=== PATIENT | male | born 1960 ===

== ENCOUNTER 2022-11-15 09:43 | Observation (INO) ==
[2022-11-15 10:38] LABS: Basophils % 0.6 % (0.0-0.8); Eosinophils % 0.8 % (0.00-10.9); Hematocrit 34.8 VOL% (42.0-52.0); Hemoglobin 11.6 GM/DL (14.0-18.0); Immature Granulocytes % 0.4 %; Immature Granulocytes Absolute 0.02 #; Lymphocytes # 0.9 10*3/uL (1.4-4.0); Lymphocytes % 18.2 % (21.2-54.2); Mean Corpuscular HGB Conc 33.3 GM/DL (32-36); Mean Corpuscular Volume 84.1 FL (87-102); Monocytes # 0.7 10*3/uL (0.11-0.8); Monocytes % 14.1 % (1.7-12.7); Neutrophils % 65.9 % (38.7-73.9); Platelet Count 233 T/CUMM (130-400); Red Blood Count 4.14 MC/CUMM (3.8-5.5); Red Cell Distribution Width 13.8 % (9.3-17.3); White Blood Count 4.9 T/CUMM (4-12)
[2022-11-15 11:02] LABS: Alanine Aminotransferase 28 U/L (16-61); Albumin 3.2 G/DL (3.4-5.0); Alkaline Phosphatase 132 U/L (45-117); Aspartate Amino Transferase 16 U/L (0-37); Bilirubin,Total < 0.39 MG/DL (0.20-1.00); Blood Urea Nitrogen 14 MG/DL (7-18); Calcium 8.7 MG/DL (8.5-10.1); Carbon Dioxide 22 MMOL/L (21-32); Chloride 98 MMOL/L (98-107); Osmolality,Calculated 291.4 MOS/KG (273-304); Potassium 2.9 MMOL/L (3.5-5.1); Sodium 133 MMOL/L (136-145); Total Protein 7.8 G/DL (6.4-8.2)
[2022-11-15 11:05] LABS: Glucose 544 MG/DL (74-106)
[2022-11-15] MEDS ORDERED: INSULIN LISPRO 100 UNIT/ML SUBCUT STA (11:12)
[2022-11-15] MEDS ORDERED: POTASSIUM CHLORIDE 20 MEQ TABLET PO STA (11:12)
[2022-11-15] MEDS ORDERED: THIAMINE INJ 100 MG, FOLIC ACID INJ 1 MG, MAGNESIUM SULF INJ 2 GM, MULTIVITAMIN INJ 10 ... IV ONE (11:22)
[2022-11-15] MEDS ORDERED: ZIPRASIDONE 20 MG/1 ML VIAL IM STA (11:25)
[2022-11-15] MEDS ORDERED: hydrALAZINE 20 MG/1 ML VIAL IV PRN (12:23)
[2022-11-15] MEDS ORDERED: POTASSIUM CHLORIDE RIDER 10 MEQ/100 ML PREMIX IV PRN (12:26)
[2022-11-15] MEDS ORDERED: ENOXAPARIN 40 MG/0.4 ML SYRINGE SUBCUT SCH (12:30)
[2022-11-15] MEDS ORDERED: LORazepam 1 MG TABLET PO PRN (12:30)
[2022-11-15] MEDS ORDERED: cloNIDine 0.2 MG/24 HR PATCH TRANSDERM SCH (13:30)
[2022-11-15 13:59] LABS: Arterial Base Excess iSTAT 0 MMOL/L (-2.5-2.5); Arterial Bicarbonate iSTAT 24.3 MMOL/L (20-26); Arterial O2 Saturation iSTAT 96 % (95-100); Arterial PCO2 iSTAT 37 MM HG (35-48); Arterial PO2 iSTAT 80 MM HG (80-95); Arterial Total CO2 iSTAT 25 MMO/L (23-27)
[2022-11-15] MEDS: LACTATED RINGERS 1,000 ML IV SCH (15:27)
[2022-11-15] MEDS: INSULIN REGULAR 100 UNIT/ML SUBCUT SCH ×2 (16:38→20:58)
[2022-11-15] MEDS ORDERED: LORazepam 2 MG/1 ML VIAL IV PRN (19:42)
[2022-11-15] MEDS: THIAMINE 200 MG/2 ML VIAL IV SCH (20:41)
[2022-11-15] MEDS ORDERED: INSULIN GLARGINE 100 UNIT/ML SUBCUT SCH (21:00)
[2022-11-16] MEDS: LACTATED RINGERS 1,000 ML IV SCH ×2 (01:35→15:31)
[2022-11-16 05:59] LABS: Basophils % 0.6 % (0.0-0.8); Eosinophils # 0.2 10*3/uL (0.0-0.87); Eosinophils % 3.1 % (0.00-10.9); Hematocrit 35.2 VOL% (42.0-52.0); Hemoglobin 11.4 GM/DL (14.0-18.0); Immature Granulocytes % 0.4 %; Immature Granulocytes Absolute 0.02 #; Lymphocytes # 1.1 10*3/uL (1.4-4.0); Lymphocytes % 21.5 % (21.2-54.2); Mean Corpuscular HGB Conc 32.4 GM/DL (32-36); Mean Platelet Volume 10.1 FL (9.6-12.0); Monocytes # 0.6 10*3/uL (0.11-0.8); Monocytes % 11.3 % (1.7-12.7); Neutrophils % 63.1 % (38.7-73.9); Platelet Count 240 T/CUMM (130-400); Red Blood Count 4.14 MC/CUMM (3.8-5.5); Red Cell Distribution Width 13.7 % (9.3-17.3); White Blood Count 5.1 T/CUMM (4-12)
[2022-11-16 06:19] LABS: Calcium 8.4 MG/DL (8.5-10.1); Osmolality,Calculated 286.3 MOS/KG (273-304); Potassium 3.2 MMOL/L (3.5-5.1); Thyroid Stimulating Hormone 0.377 uIU/ml (0.358-3.74)
[2022-11-16] MEDS: INSULIN REGULAR 100 UNIT/ML SUBCUT SCH ×3 (08:22→16:43)
[2022-11-16] MEDS: THIAMINE 200 MG/2 ML VIAL IV SCH (08:30)
[2022-11-16] MEDS ORDERED: FOLIC ACID 1 MG TABLET PO SCH (09:00)
[2022-11-16] MEDS ORDERED: amLODIPine 10 MG TABLET PO SCH (09:00)
[2022-11-16] MEDS ORDERED: POTASSIUM CHLORIDE 20 MEQ TABLET PO ONE (12:00)
[2022-11-16] MEDS ORDERED: LABETALOL 20 MG/4 ML SYRINGE IV ONE (15:00)
[2022-11-16] MEDS ORDERED: lisinopriL 20 MG TABLET PO ONE (15:00)
[2022-11-16 16:49] VITALS: BP 187/92
[2022-11-16] MEDS ORDERED: INSULIN GLARGINE 100 UNIT/ML SUBCUT SCH (21:00)
[2022-11-16] MEDS ORDERED: ATORVASTATIN 20 MG TABLET PO SCH (21:00)
[2022-11-17] MEDS ORDERED: lisinopriL 20 MG TABLET PO SCH (09:00)
== END 2022-11-16 16:45 | disposition home or self-care (01) ==
LOC: N.EDINP 09:43 → N.ED 09:43 → N.2E 14:10
PROVIDERS: ADMIT Hospitalist; ATTEND Hospitalist